=== PATIENT | male | born 1975 | race Asian ===

== ENCOUNTER 2021-07-17 17:20 | Inpatient (IN) | payer OTHER ==
[~2021-07-17] VITALS: Ht 185.4 cm; Wt 106.6 kg
[2021-07-17] VITALS (7 sets, daily range): BP systolic 135–162; BP diastolic 89–110; TEMP 97.1–98.4; Ht 185.4 cm; Wt 106.6 kg
[2021-07-17 18:56] LABS: PLATELET COUNT 379 K/uL (142-355)
[2021-07-17 19:04] LABS: POTASSIUM 5.1 mmol/L (3.6-5.2)
[2021-07-17 19:32] LABS: PARTIAL THROMBOPLASTIN TIME 26.8 SECONDS (24.5-33.6)
[2021-07-17 21:19] LABS: POTASSIUM 5.1 mmol/L (3.6-5.2)
[2021-07-18] VITALS (17 sets, daily range): BP systolic 120–160; BP diastolic 72–106; TEMP 97.6–99.3
[2021-07-18 02:21] LABS: POTASSIUM 4.4 mmol/L (3.6-5.2)
[2021-07-18 06:02] LABS: PLATELET COUNT 336 K/uL (142-355)
[2021-07-18 06:18] LABS: POTASSIUM 4.1 mmol/L (3.6-5.2)
[2021-07-18 10:28] LABS: POTASSIUM 4.4 mmol/L (3.6-5.2)
[2021-07-18 16:30] LABS: POTASSIUM 5.3 mmol/L (3.6-5.2)
[2021-07-18 22:14] LABS: POTASSIUM 4.5 mmol/L (3.6-5.2)
[2021-07-19] VITALS (17 sets, daily range): BP systolic 104–164; BP diastolic 72–104; TEMP 97.5–99.3
[2021-07-19 04:31] LABS: POTASSIUM 4.4 mmol/L (3.6-5.2)
[2021-07-19 10:16] LABS: PLATELET COUNT 263 K/uL (142-355)
[2021-07-19 10:45] LABS: POTASSIUM 3.9 mmol/L (3.6-5.2)
[2021-07-19 16:31] LABS: POTASSIUM 3.6 mmol/L (3.6-5.2)
[2021-07-19 21:56] LABS: POTASSIUM 3.7 mmol/L (3.6-5.2)
[2021-07-20] VITALS (10 sets, daily range): BP systolic 132–176; BP diastolic 64–109; TEMP 97.4–99.1
[2021-07-20 04:05] LABS: PLATELET COUNT 232 K/uL (142-355)
[2021-07-20 04:20] LABS: POTASSIUM 2.9 mmol/L (3.6-5.2)
[2021-07-21 08:00] VITALS: BP 138/89; TEMP 98.3
[2021-07-21 08:29] LABS: PLATELET COUNT 279 K/uL (142-355)
[2021-07-21 08:35] LABS: POTASSIUM 3.6 mmol/L (3.6-5.2)
== END 2021-07-21 11:50 | disposition home or self-care (01) | DRG 638 ==
LOC: ED 18:28 → MED/SURG 20:20
PROVIDERS: Hospitalist; Internal Medicine; Internal Medicine Endocrinology, Diabetes & Metabolism; ADMIT Internal Medicine; ATTEND Internal Medicine
DX: E11.10 Type 2 diabetes mellitus with ketoacidosis without coma (principal); N39.0 Urinary tract infection, site not specified; N17.8 Other acute kidney failure; Z72.0 Tobacco use; K21.9 Gastro-esophageal reflux disease without esophagitis; E66.8 Other obesity; Z68.31 Body mass index [BMI] 31.0-31.9, adult
CPT/HCPCS: 36415; 36600; 80048; 80053; 80307; 80320; 81000; 81002; 82550; 82805; 83036; 83605; 83735; 83880; 84100; 84443; 84484; 85027; 85610; 85730; 87040; 87088; 87635; 93005; 94760; 96360; 96361; 96365; 96366; 96375; 99284; J0360; J0456; J0696; J1650; J1815; J2405; J3490; U0003

== ENCOUNTER 2021-07-26 10:57 | Emergency (ER) | payer OTHER ==
[~2021-07-26] VITALS: Ht 185.4 cm; Wt 106.6 kg
[2021-07-26 11:04] VITALS: TEMP 97.9
[2021-07-26 11:41] LABS: PLATELET COUNT 581 K/uL (142-355)
[2021-07-26 12:02] LABS: POTASSIUM 3.9 mmol/L (3.6-5.2)
[2021-07-26 12:29] VITALS: BP 116/74
== END 2021-07-26 12:52 | disposition home or self-care (01) ==
LOC: ED 10:57
PROVIDERS: Emergency Medicine
DX: T78.3XXA Angioneurotic edema, initial encounter (principal); E11.65 Type 2 diabetes mellitus with hyperglycemia; Z79.84 Long term (current) use of oral hypoglycemic drugs; I10 Essential (primary) hypertension; F17.210 Nicotine dependence, cigarettes, uncomplicated; X58.XXXA Exposure to other specified factors, initial encounter; Y92.89 Other specified places as the place of occurrence of the external cause
CPT/HCPCS: 80048; 85027; 93005; 96372; 99283; J1200; J2920